=== PATIENT | male | born 1970 | race Caucasian/White ===

== ENCOUNTER 2017-02-16 14:02 | Emergency (ER) | payer OTHER ==
[~2017-02-16] VITALS: Ht 188 cm; Wt 99.8 kg
[~2017-02-16 14:02] MED LIST: AMOXICILLIN875 M1 PO; IBUPROFEN800 M1 PO; NORCO 325 MG-51 TAB PO; VICODIN 5-3001 EACH PO
[2017-02-16] MEDS ORDERED: ADVIL200 M1 PO (16:15)
[2017-02-16] MEDS ORDERED: VICODIN 5-3001 EACH PO (16:54)
[2017-02-16] MEDS ORDERED: AMOXICILLIN500 M3 PO (16:54)
--- NOTE | 2017-02-16 16:54 | ED THROAT/DENTAL COMPLAINT ---
History of Present Illness General Chief Complaint: Sore Throat, Dental Pain Stated Complaint: TOOTH PAIN Source: patient Exam Limitations: no limitations Vital Signs & Intake/Output Vital Signs & Intake/Output Vital Signs Date Time Temp Pulse Resp B/P Pulse O2 O2 Flow FiO2 Ox Delivery Rate 02/16 1658 97.0 61 22 137/79 96 Room Air 02/16 1405 98.1 87 16 136/83 97 Room Air Allergies Coded Allergies: NO KNOWN ALLERGIES (12/16/11) Triage Note: PT STATES HE HAS A TOOTH ACHE ON THE RIGHT SIDE OF HIS MOUTH. PT STATES HIS DENTIST IS AWAY FOR A FEW DAYS AND PT WAS TOLD TO COME TO ED FOR ABX. Triage Nurses Notes Reviewed? yes HPI: This patient is a 46-year-old male who presented to the emergency department today for evaluation of right lower dentition pain. He reported that the pain began approximately 3 days ago and has been constant since onset. He reported pain is sharp and throbbing. Worse with mastication. He reported that the pain radiates up to the right side of his forehead. He reported that the pain gets up to a, "12 out of 10." He denied any fevers or chills. No chest pain or difficulty breathing. No difficulty swallowing. (ALEXYS CASTORENA PA-C) Reconcile Medications Amoxicillin 500 MG TABLET 1 TAB PO TID Hydrocodone/Acetaminophen (Vicodin 5-300 MG Tablet) 5 MG-300 MG TABLET 1 TAB PO BID PRN pain Ibuprofen (Advil) 200 MG CAPSULE 2 CAP PO PRN PAIN (Reported) (NIGEL DAS,CARLOS) Past History Travel History Traveled to [place] past 21 day No Medical History Any Pertinent Medical History? see below for history Neurological: NONE EENT: NONE Cardiovascular: NONE Respiratory: NONE Gastrointestinal: NONE Hepatic: NONE Renal: NONE Musculoskeletal: NONE Psychiatric: NONE Endocrine: NONE Blood Disorders: NONE Cancer(s): NONE EFFICIENCY ANALYST/Reproductive: NONE Surgical History Surgical History: non-contributory Psychosocial History What is your primary language Iraqi Tobacco Use: Current Daily Use Daily Tobacco Use Amount/Type: => 5 Cigarettes daily ETOH Use: denies use Illicit Drug Use: denies illicit drug use Family History Hx Contributory? No (ALEXYS CASTORENA PA-C) Review of Systems Review of Systems Constitutional: Reports: no symptoms. EENTM: Reports: see HPI. Respiratory: Reports: no symptoms. Cardiovascular: Reports: no symptoms. GI: Reports: no symptoms. Musculoskeletal: Reports: no symptoms. Skin: Reports: no symptoms. Neurological/Psychological: Reports: no symptoms. All Other Systems: Reviewed and Negative (ALEXYS CASTORENA PA-C) Physical Exam Physical Exam Mouth/Throat: carious dentition. Tenderness to palpation over the 19th molar. No pharyngeal injection. No oropharyngeal lesions or edema. No mandibular or maxillary edema. No evidence of gingival erythema or edema Comments: Well-developed well-nourished person in mild distress HEENT: Head normocephalic, moist mucous membranes Neck: Supple, no lymphadenopathy Back: Normal gait Respiratory: No respiratory distress speaking in full sentences Extremities: No edema, full range of motion Neuro: Alert and oriented x3 Psych: Mood affect normal, normal memory normal judgment. Skin: Warm and dry, no rash on exposed skin Core Measures ACS in differential dx? No Severe Sepsis Present: No Septic Shock Present: No (ALEXYS CASTORENA PA-C) Progress Differential Diagnosis: aspirated tooth, carious tooth, Ludwigs angina, meningitis, odontogenic abscess, julio cesar-tonsillar abscess, pharyngeal for. body, stomatitis/gingivitis, strep pharyngitis, tooth fracture Plan of Care: Current Medications Sig/Zachary Start time Last Medication Dose Stop Time Status Admin Acetaminophen/ 1 TAB ONCE ONE 02/16 164 UNVr Hydrocodone Bitart 02/16 164 (Vicodin) Departure Departure Disposition: HOME OR SELF CARE Condition: Stable Clinical Impression Primary Impression: Tooth pain Referrals: PATIENT HAS NO PRIMARY CARE DR (PCP/Family) Additional Instructions: Take antibiotic as prescribed in for the full duration. Take medication for pain as prescribed. Please attend your previously scheduled appointment with your dentist as discussed. Return for any worsening symptoms or concerns. Departure Forms: Customer Survey General Discharge Information Prescriptions: Current Visit Scripts Amoxicillin 1 TAB PO TID #30 TAB Hydrocodone/Acetaminophen (Vicodin 5-300 MG Tablet) 1 TAB PO BID PRN pain #10 TAB (ALEXYS CASTORENA PA-C) PA/STERILE TECHNICIAN Co-Sign Statement Statement: ED Attending supervision documentation- [] I saw and evaluated the patient. I have also reviewed all the pertinent lab results and diagnostic results. I agree with the findings and the plan of care as documented in the PA's/STERILE TECHNICIAN's documentation. x I have reviewed the ED Record and agree with the PA's/STERILE TECHNICIAN's documentation. [] Additions or exceptions (if any) to the PAs/STERILE TECHNICIAN's note and plan are summarized below: [] (NIGEL DAS,CARLOS)
[2017-02-16 16:58] VITALS: BP 137/79
== END 2017-02-16 16:59 ==
LOC: ERH 14:02
DX: K08.89 Other specified disorders of teeth and supporting structures (principal)